=== PATIENT | female | born 1990 | race Caucasian/White ===

== ENCOUNTER 2019-06-15 15:20 | Emergency (ER) | payer OTHER ==
[~2019-06-15] VITALS: Ht 167.6 cm; Wt 86.2 kg
[~2019-06-15 15:20] MED LIST: ANAPROX DS550 MG PO; BACTRIM DS 8001 TA1 PO; CLARITIN10 MG PO; FLEXERIL10 MG PO; FLONASE ALLERG9.9 ML NAS; MOTRIN600 MG PO; PREDNISONE10 MG PO; ROBITUSSIN AC 110 ML PO
[2019-06-15 16:07] LABS: BASO % 0.4 % (0.0-1.0); EOS # 0.1 10*3/uL (0.0-0.4); EOS % 0.6 % (1.0-4.0); HEMATOCRIT 42.3 % (37.0-47.0); HEMOGLOBIN 14.7 g/dl (12.0-16.0); LYMPH % 11.3 % (27.0-41.0); MEAN CORPUSCULAR HGB 30.2 pg (27.0-31.0); MEAN CORPUSCULAR HGB CONC 34.8 g/dl (33.0-37.0); MEAN PLATELET VOLUME 10.3 fl (9.6-12.3); MONO # 0.4 10*3/uL (0.1-1.0); MONO % 4.2 % (3.0-9.0); NEUT # 7.5 10*3/uL (2.3-7.9); NEUT % 83.3 % (47.0-73.0); PLATELET COUNT AUTOMATED 319 10*3/uL (130-400); RED BLOOD COUNT 4.86 10*6/uL (4.10-5.10); RED CELL DISTRI WIDTH 11.7 % (0-14.5)
[2019-06-15 16:22] LABS: ALBUMIN 4.2 gm/dl (3.1-4.5); ALKALINE PHOSPHATASE 51 U/L (45-117); BUN 11 mg/dl (7-24); CHLORIDE 109 mmol/L (98-107); CREATININE 0.86 mg/dL (0.55-1.02); POTASSIUM 3.5 mmol/L (3.5-5.1); SGOT/AST 19 IU/L (3-35); SGPT/ALT 27 U/L (12-78); SODIUM 143 mmol/L (136-145); TOTAL PROTEIN 8.2 gm/dL (6.4-8.2)
[2019-06-15] MEDS ORDERED: ZOFRAN4 MG PO (17:34)
[2019-06-15] MEDS ORDERED: ALLERGY RELIEF25 MG PO (17:44)
== END 2019-06-15 17:51 | disposition home or self-care (01) ==
LOC: ED 15:20
PROVIDERS: Emergency Medicine
DX: R07.9 Chest pain, unspecified (principal); Z79.2 Long term (current) use of antibiotics; Z79.899 Other long term (current) drug therapy

== ENCOUNTER 2019-12-12 10:31 | Emergency (ER) | payer SELFPAY ==
[~2019-12-12] VITALS: Wt 87.1 kg
[~2019-12-12 10:31] MED LIST changes: +ALLERGY RELIEF25 MG PO; +ZOFRAN4 MG PO
[2019-12-12 13:11] LABS: HEMATOCRIT 38.8 % (37.0-47.0); MEAN CELL VOLUME 84.3 fl (81.0-99.0); MEAN CORPUSCULAR HGB 29.6 pg (27.0-31.0); MEAN CORPUSCULAR HGB CONC 35.1 g/dl (33.0-37.0); MEAN PLATELET VOLUME 10.2 fl (9.6-12.3); PLATELET COUNT AUTOMATED 239 10*3/uL (130-400); RED CELL DISTRI WIDTH 11.6 % (0-14.5)
[2019-12-12 13:28] LABS: BUN 15 mg/dl (7-24); CHLORIDE 106 mmol/L (98-107); CREATININE 0.77 mg/dL (0.55-1.02); POTASSIUM 4.1 mmol/L (3.5-5.1); SODIUM 138 mmol/L (136-145)
[2019-12-12 13:29] LABS: ACT PARTIAL THROMBO TIME 27.9 SECONDS (20.0-32.1); BASOPHILS 1 % (0-1); TOTAL CELLS COUNTED 100 #CELLS; TROPONIN I < 0.015 ng/ml (<0.045)
[2019-12-12 13:30] LABS: PLATELET SUFFICIENCY NORMAL (NORMAL)
== END 2019-12-12 15:11 | disposition home or self-care (01) ==
LOC: ED 10:31
PROVIDERS: Emergency Medicine
DX: R07.9 Chest pain, unspecified (principal); R00.0 Tachycardia, unspecified; R50.9 Fever, unspecified; Z20.828 Contact with and (suspected) exposure to other viral communicable diseases; Z88.0 Allergy status to penicillin

== ENCOUNTER 2022-06-11 06:40 | Emergency (ER) | payer OTHER ==
[~2022-06-11] VITALS: Ht 162.5 cm; Wt 86.2 kg
[~2022-06-11 06:40] MED LIST changes: +MEDROL DOSEPAK4 MG PO
[2022-06-11] MEDS ORDERED: VIBRAMYCIN HYC100 MG PO (07:58)
== END 2022-06-11 08:10 | disposition home or self-care (01) ==
LOC: ED 06:40
DX: H66.91 Otitis media, unspecified, right ear (principal); J40 Bronchitis, not specified as acute or chronic; Z88.0 Allergy status to penicillin

== ENCOUNTER 2022-08-16 20:32 | Emergency (ER) | payer OTHER ==
[~2022-08-16] VITALS: Ht 167.6 cm; Wt 97.5 kg
[~2022-08-16 20:32] MED LIST changes: +VIBRAMYCIN HYC100 MG PO
[2022-08-16] MEDS ORDERED: ZITHROMAX250 MG PO (21:18)
== END 2022-08-16 21:28 | disposition home or self-care (01) ==
LOC: ED 20:32
DX: H66.91 Otitis media, unspecified, right ear (principal); J02.9 Acute pharyngitis, unspecified; Z88.0 Allergy status to penicillin

== ENCOUNTER → 2024-05-07 | Outpatient (CLI) | payer OTHER ==
[~2024-05-07] MED LIST changes: +ZITHROMAX250 MG PO
[2024-05-07 15:17] LABS: HEMATOCRIT 38.7 % (37.0-47.0); MEAN CELL VOLUME 83.8 fl (81.0-99.0); MEAN CORPUSCULAR HGB 29.2 pg (27.0-31.0); MEAN CORPUSCULAR HGB CONC 34.9 g/dl (33.0-37.0); MEAN PLATELET VOLUME 9.3 fl (9.6-12.3); RED BLOOD COUNT 4.62 10*6/uL (4.10-5.10); RED CELL DISTRI WIDTH 11.7 % (0-14.5); WHITE BLOOD COUNT 5.2 10*3/uL (4.8-10.8)
[2024-05-07 15:43] LABS: ALKALINE PHOSPHATASE 49 U/L (46-116); BUN 13 mg/dl (9-23); CHLORIDE 103 mmol/L (98-107); CHOLESTEROL 197 mg/dL (<200); FREE T4 1.28 ng/dl (0.89-1.76); LDL CHOLESTEROL 126 mg/dL (9-159); POTASSIUM 4.3 mmol/L (3.4-5.1); SGPT/ALT 28 U/L (5-49); TOTAL PROTEIN 7.6 gm/dL (6.0-8.0); TRIGLYCERIDES 113 mg/dl (<150)
[2024-05-07 15:59] LABS: VITAMIN D, 25-HYDROXY 20.9 ng/mL (30-100)
[2024-05-10 01:06] LABS: TESTOS, FREE 2.3 pg/mL (0.0-4.2)
== END | disposition home or self-care (01) ==
LOC: LAB 14:38
PROVIDERS: ATTEND Family Medicine
DX: E55.9 Vitamin D deficiency, unspecified (principal); E66.9 Obesity, unspecified; R63.1 Polydipsia; R53.83 Other fatigue; E11.9 Type 2 diabetes mellitus without complications

== ENCOUNTER 2025-01-24 09:59 | Emergency (ER) | payer OTHER ==
[~2025-01-24] VITALS: Ht 167.6 cm; Wt 99.8 kg
[2025-01-24] MEDS ORDERED: Dicyclomine Hydrochloride 20 MG/2 ML VIAL IM ONE (10:40)
[2025-01-24] MEDS ORDERED: Ondansetron Hydrochloride 4 MG/2 ML VIAL IV ONE (10:40)
[2025-01-24] MEDS ORDERED: IOHEXOL 300 MG/ML 100 ML VIAL IV ONE (10:40)
[2025-01-24 10:52] LABS: BASO # 0.0 10*3/uL (0.0-0.1); BASO % 0.3 % (0.0-1.0); EOS # 0.1 10*3/uL (0.0-0.4); EOS % 0.7 % (1.0-4.0); MEAN CELL VOLUME 83.1 fl (81.0-99.0); MEAN CORPUSCULAR HGB 29.5 pg (27.0-31.0); MEAN PLATELET VOLUME 9.6 fl (9.6-12.3); MONO # 0.9 10*3/uL (0.1-1.0); MONO % 9.2 % (3.0-9.0); NEUT # 7.6 10*3/uL (2.3-7.9); NEUT % 78.6 % (47.0-73.0); NUCLEATED RED BLOOD CELL 0.0 % (0.0-0.0); NUCLEATED RED BLOOD CELL 0.0 10*3/uL (0.0-0.0); PLATELET COUNT AUTOMATED 254 10*3/uL (130-400); RED CELL DISTRI WIDTH 11.3 % (0-14.5)
[2025-01-24] MEDS ORDERED: IOHEXOL 300 MG/ML 100 ML VIAL ONE (11:05)
[2025-01-24] MEDS ORDERED: SODIUM CHLORIDE 0.9% 1,000 ML IV ONE (11:05)
[2025-01-24 11:18] LABS: BUN 16.0 mg/dl (9-23); SGPT/ALT 12.0 U/L (5-49)
[2025-01-24 12:10] LABS: BILIRUBIN Negative (Negative); BLOOD Trace-Lysed (Negative); CLARITY Clear (Clear); COLOR Yellow (Yellow); KETONE 2+ (Negative); LEUKO ESTERASE 1+ (Negative); NITRITE Negative (Negative); PH 6.0 (4.5-8.0); SPECIFIC GRAVITY >= 1.030 (1.001-1.030); UROBILINOGEN 1.0 E.U./dl (0.0-1.0)
[2025-01-24 12:27] LABS: BACTERIA TRACE; YEAST TRACE
[2025-01-24] MEDS ORDERED: Ondansetron4 MG PO (13:06)
[2025-01-24] MEDS ORDERED: NAPROXEN250 MG PO (13:06)
[2025-01-24] MEDS ORDERED: FLOMAX0.4 MG PO (13:06)
[2025-01-24] MEDS ORDERED: SEPTDS PO (13:06)
== END 2025-01-24 13:17 | disposition home or self-care (01) ==
LOC: ED 09:59
PROVIDERS: Student in an Organized Health Care Education/Training Program
DX: N20.0 Calculus of kidney (principal); Z79.899 Other long term (current) drug therapy